=== PATIENT | female | born 2000 | race Caucasian/White ===

== ENCOUNTER 2019-02-11 18:31 | Emergency (ER) | payer OTHER, BC ==
[~2019-02-11] VITALS: Ht 154.9 cm; Wt 60.0 kg
[2019-02-11 18:42] VITALS: BP 107/63
[2019-02-11] MEDS ORDERED: FLEXERIL PO (20:09)
[2019-02-11] MEDS ORDERED: NAPROSYN500 MG PO (20:09)
== END 2019-02-11 20:22 | disposition home or self-care (01) | DRG 563 ==
LOC: ED 18:31
DX: S93.401A Sprain of unspecified ligament of right ankle, initial encounter (principal); S13.4XXA Sprain of ligaments of cervical spine, initial encounter; V43.52XA Car driver injured in collision with other type car in traffic accident, initial encounter; Y92.410 Unspecified street and highway as the place of occurrence of the external cause